=== PATIENT | male | born 1955 | race African-American/Black ===

== ENCOUNTER 2019-01-22 19:52 | Inpatient (IN) | payer OTHER ==
[~2019-01-22] VITALS: Ht 172.7 cm; Wt 108.0 kg
[2019-01-22 19:55] VITALS: BP 167/65
[2019-01-22 21:09] LABS: ABSOLUTE NEUTROPHILS 9.5 thou/uL (1.4-8.2); BASOPHILS 0.6 % (0.0-2.0); EOSINOPHILS 2.3 % (0.0-3.0); HEMATOCRIT 23.8 % (42.0-52.0); HEMOGLOBIN 7.7 gm/dL (14.0-18.0); LYMPHOCYTES 14.7 % (24.0-44.0); MCH 27.1 pg (26.0-34.0); MCHC 32.4 g/dL (28.0-37.0); MCV 83.7 fL (80.0-100.0); PLATELET COUNT 337 thou/uL (150-400); POLYS 75.4 % (36.0-66.0); RBC 2.85 mil/uL (4.50-6.00); RDW 17.2 % (10.5-14.5); WBC 12.6 thou/uL (4.0-11.0)
[2019-01-22 21:15] LABS: ANION GAP 12 mmol/L (7-16); BUN 70 mg/dL (7-18); CALCIUM 9.6 mg/dL (8.5-10.1); CHLORIDE 110 mmol/L (98-107); CO2 23 mmol/L (21-32); GLUCOSE 153 mg/dL (74-106); POTASSIUM 5.3 mmol/L (3.5-5.1); SODIUM 145 mmol/L (136-145)
[2019-01-22 21:24] LABS: TROPONIN-I <0.06 ng/mL (<0.06)
[2019-01-22] MEDS ORDERED: COREG25 MG PO (21:37)
[2019-01-22] MEDS ORDERED: CARDURA4 MG PO (21:38)
[2019-01-22] MEDS ORDERED: LIPITOR 20 MG T20 M1 PO (21:38)
[2019-01-22] MEDS ORDERED: TRADJENTA5 MG (21:38)
[2019-01-22] MEDS ORDERED: ASPIR 8181 MG PO (21:39)
[2019-01-22] MEDS ORDERED: FISH OIL 1,001000 M2 PO (21:39)
[2019-01-22] MEDS ORDERED: IRON325 PO (21:39)
[2019-01-22] MEDS ORDERED: OMEPRAZOLE40 MG PO (21:40)
[2019-01-22] MEDS ORDERED: DEMADEX20 MG PO (21:40)
[2019-01-22] MEDS ORDERED: ZETIA10 MG PO (21:41)
[2019-01-22] MEDS ORDERED: PENTOXIFYLLINE400 MG PO (21:42)
[2019-01-22 23:02] LABS: URINE BILIRUBIN NEGATIVE (Negative); URINE BLOOD TRACE (Negative); URINE CLARITY CLEAR; URINE COLOR YELLOW; URINE GLUCOSE-RANDOM* TRACE (Negative); URINE KETONES NEGATIVE (Negative); URINE LEUKOCYTES NEGATIVE (Negative); URINE NITRITE NEGATIVE (Negative); URINE PROTEIN (DIPSTICK) 2+ (Negative); URINE UROBILINOGEN 0.2 E.U./dl (0.2-1.0)
[2019-01-22 23:10] LABS: BACTERIA 1-9 Few /HPF (None Seen); CASTS None Seen /LPF (None Seen); CRYSTALS None Seen /LPF (None Seen); MUCUS 0-3 Light strn/LPF (None Seen); SQUAMOUS 0-3 Few /LPF (0-3); URINE RBC 0-2 Rare /HPF (0-2); URINE WBC 0-5 Rare /HPF (0-5)
[2019-01-22 23:14] VITALS: BP 154/69
[2019-01-22 23:20] VITALS: BP 136/65
[2019-01-23 00:01] VITALS: BP 143/69
--- NOTE | 2019-01-23 02:06 | NUR ---
PT ORIENTATED TO ROOM AND CALL LIGHT PT USED CALL LIGHT EFFECTIVELY CONSENTS SIGNED PT USED CALL LIGHT EFFECTIVELY NO ISSUES OVERNIGHT.
[2019-01-23 03:50] VITALS: BP 152/62
[2019-01-23 04:31] LABS: HEMATOCRIT 21.5 % (42.0-52.0); HEMOGLOBIN 6.9 gm/dL (14.0-18.0); MCH 27.1 pg (26.0-34.0); MCHC 32.3 g/dL (28.0-37.0); RBC 2.56 mil/uL (4.50-6.00); WBC 10.6 thou/uL (4.0-11.0)
[2019-01-23 04:33] LABS: MCV 83.9 fL (80.0-100.0); RDW 16.9 % (10.5-14.5)
[2019-01-23 04:43] LABS: CALCIUM 8.9 mg/dL (8.5-10.1); CREATININE 6.2 mg/dL (0.7-1.3); MAGNESIUM 1.8 mg/dL (1.8-2.4); PHOSPHORUS 5.3 mg/dL (2.5-4.9); POTASSIUM 4.9 mmol/L (3.5-5.1)
[2019-01-23 07:50] VITALS: BP 133/62
[2019-01-23 10:02] LABS: HEMATOCRIT 22.1 % (42.0-52.0)
--- NOTE | 2019-01-23 13:44 | EKG ---
[place] [address] [employer] [facility] [place] [address] ELECTROCARDIOGRAM REPORT Name: RAVIN ALCANTARA Room #: 455-P ADM IN M.R.#: [id number] ������������������ Admission: 01/22/19 ������������������ Attend Phys: Lux Hairston MD Discharge: ������������������ Date of : 57 Report #: [id number] ����������������������������������������������������������������� [id number] THIS REPORT FOR: //name// [facility] ED Test Date: 2019-01-22 Test Time: 20:49:12 Pat Name: RAVIN ALCANTARA Department: Room: [facility] Gender: M Secy: CHAD : 1955 Requested By: Carmen Youngblood Order Number: [id number] MD: Rios Marrero Measurements Intervals [place] Rate: 74 P: 37 MN: 222 QRS: 40 QRSD: 96 T: 157 QT: 388 QTc: 431 Interpretive Statements Sinus rhythm Paired ventricular premature complexes Prolonged MN interval Abnormal T, consider ischemia, lateral leads Compared to ECG 11/03/2006 20:37:55 Ventricular premature complex(es) now present T-wave abnormality is more pronounced Electronically Signed On 01-23-2019 13:44:18 CDT by Rios Marrero [email or web address] ��������������������������������������������� <ELECTRONICALLY SIGNED> ���������������������������������������� By: Rios Marrero MD, [facility] ��������������������������������������������� 01/23/19 1344 48 48 Rios Marrero MD, [facility] /EPI
[2019-01-23 13:55] VITALS: BP 127/67
--- NOTE | 2019-01-23 15:24 | NUR ---
TOWARDS POC PT A/O X4, VSS, AFEBRILE, DENIES PAIN. DIALYSIS FISTULA POSITIVE WITH T,B. NO CONCERNS VOICED. WILL CONTINUE TO MONITOR.
[2019-01-23 19:55] VITALS: BP 150/77
[2019-01-24 04:56] VITALS: BP 151/62
--- NOTE | 2019-01-24 05:50 | NUR ---
Assumed care at 1845. Pt resting in bed. Denies pain. He is still on 2L NC. Stool sample results still pending for occult blood. Call light within reach. No identified needs at the moment. Will continue to monitor.
[2019-01-24 05:57] LABS: HEMATOCRIT 22.7 % (42.0-52.0); HEMOGLOBIN 7.5 gm/dL (14.0-18.0); MCH 27.9 pg (26.0-34.0); MCHC 33.2 g/dL (28.0-37.0); RBC 2.7 mil/uL (4.50-6.00); RDW 17.1 % (10.5-14.5); WBC 10.9 thou/uL (4.0-11.0)
[2019-01-24 06:14] LABS: ALBUMIN 2.8 g/dL (3.4-5.0); CALCIUM 8.9 mg/dL (8.5-10.1); CREATININE 6.1 mg/dL (0.7-1.3); PHOSPHORUS 5.8 mg/dL (2.5-4.9)
[2019-01-24 06:23] LABS: % SATURATION 13 % (20-39); IRON 26 ug/dL (65-175); TIBC 199 ug/dL (250-450)
[2019-01-24 07:45] VITALS: BP 131/55
--- NOTE | 2019-01-24 11:25 | 2DMMODE ---
[facility] [employer] [address] 2 D/M-MODE ECHOCARDIOGRAM Name: RAVIN ALCANTARA Room #: 455-P [facility] IN [facility].#: [id number] ������������� Admission: 01/22/19 ������������� Attend Phys: Niko Martinez, Discharge: ��� ������������� ��� Date of : 57 Date of Service: 01/24/19 1124 �� Report #: [id number] �������� ��������������������������������������������[id number] THIS REPORT FOR: //name// APPROVED REPORT Study performed: 01/24/2019 10:18:54 EXAM: Comprehensive 2D, Doppler, and color-flow Echocardiogram Patient Location: Bedside Room #: [facility] Status: routine BSA: 2.20 HR: 67 bpm BP: 131/55 mmHg Rhythm: NSR Other Information Study Quality: Good Indications COPD Diabetes Hypertension/HDD PETTY Echo Enhancing Agent Indication: Endocardial border delineation Agent(s) / Amount(s) Used: Optison 3 cc 2D Dimensions RVDd: 46.76 mm IVSd: 14.89 (7-11mm) LVOT Diam: 20.78 (18-24mm) LVDd: 50.94 mm PWd: 15.54 (7-11mm) Ascending Ao: 27.01 (22-36mm) LVDs: 36.08 (25-40mm) Aortic Root: 33.50 mm IVC: 18.00 mm Volumes Left Atrial Volume (Systole) Single Plane 4CH: 73.05 mL Single Plane 2CH: 76.84 mL LA ESV Index: 38.00 mL/m2 Aortic Valve AoV Peak Pramod.: 1.40 m/s [facility] [address] [place] [address] 2 D/M-MODE ECHOCARDIOGRAM Name: RAVIN ALCANTARA Room #: 455-P [facility] IN [facility]#: [id number] ������������� Admission: 01/22/19 ������������� Attend Phys: Niko Martinez, Discharge: ��� ������������� ��� Date of : 57 Date of Service: 01/24/19 1124 �� Report #: [id number] �������� ��������������������������������������������[id number] AO Peak Gr.: 7.87 mmHg LVOT Max P.45 mmHg LVOT Max V: 1.05 m/s FAREED Vmax: 2.55 cm2 Mitral Valve E/A Ratio: 1.2 MV Decel. Time: 272.36 ms MV E Max Pramod.: 1.17 m/s MV A Pramod.: 1.00 m/s MV PHT: 78.99 ms IVRT: 92.27 ms Pulmonary Valve PV Peak Pramod.: 1.17 m/s PV Peak Gr.: 5.44 mmHg Pulmonary Vein P Vein S: 0.38 m/s P Vein A: 0.24 m/s P Vein D: 0.45 m/s P Vein A Dur.: 184.5 msec P Vein S/D Ratio: 0.84 Tricuspid Valve TR Peak Pramod.: 2.79 m/s RAP Estimate: 5.00 mmHg TR Peak Gr.: 31.12 mmHg PA Pressure: 36.00 mmHg Left Ventricle The left ventricle is normal size. Regional wall motion abnormalities are noted. Akinetic apex. Moderate concentric left ventricular hypertrophy. Left ventricular systolic function is mildly decreased. LVEF is 50%. Moderate diastolic dysfunction is present (pseudonormal filling). Right Ventricle Right ventricle is mild to moderately dilated. The right ventricular systolic function is normal. Atria Left atrium is mildly dilated. Right atrium is mildly dilated. Aortic Valve The aortic valve is normal in structure. No aortic regurgitation is present. There is no aortic valvular stenosis. Mitral Valve The mitral valve is normal in structure. Trace to mild mitral [facility] [address] [place] [address] 2 D/M-MODE ECHOCARDIOGRAM Name: RAVIN ALCANTARA Room #: 455-P [facility] IN [facility].#: [id number] ������������� Admission: 01/22/19 ������������� Attend Phys: Niko Martinez, Discharge: ��� ������������� ��� Date of : 57 Date of Service: 01/24/19 1124 �� Report #: [id number] �������� ��������������������������������������������[id number] regurgitation. No evidence of mitral valve stenosis. Tricuspid Valve The tricuspid valve is normal in structure. Trace tricuspid regurgitation. PAP is estimated at 36 mmHg. Pulmonic Valve The pulmonary valve is normal in structure. Trace pulmonic regurgitation. Great Vessels The aortic root is normal in size. IVC is normal in size and collapses >50% with inspiration. Pericardium There is no pericardial effusion. <Conclusion> The left ventricle is normal size. Moderate concentric left ventricular hypertrophy. Regional wall motion abnormalities are noted. Akinetic apex. LVEF is 50%. Moderate diastolic dysfunction is present (pseudonormal filling). Right ventricle is mild to moderately dilated. Left atrium is mildly dilated. Right atrium is mildly dilated. The aortic valve is normal in structure. Trace to mild mitral regurgitation. Trace tricuspid regurgitation. PAP is estimated at 36 mmHg. The aortic root is normal in size. There is no pericardial effusion. ��������������������������������������������� <ELECTRONICALLY SIGNED> ���������������������������������������� By: Barrington Sampson MD, FACC ��������������������������������������������� 01/24/19 1124 1124 1124 Barrington Sampson MD, FACC /INF
[2019-01-24 13:53] VITALS: BP 126/52
[2019-01-24 18:00] VITALS: BP 142/64
--- NOTE | 2019-01-24 19:46 | NUR ---
Pt stable through out the shift, is ableto use the call light effectively and make needs known. Fistula in the left upper arm positive for T and B. Pt is able to walk to the toilet with ease. No issues identified or verbalizations of sob. Still on 2L of O2 vuia NC (confort care). Transferred to room 222 (senior suites), tele dc by dr. Arreola. Pt has been trans ferred.
--- NOTE | 2019-01-25 04:07 | NUR ---
Assumed pt care at 1900. Pt A/OX4,pleasant and denies pain on assessment.Up ad reyna in room without problems,denies any SOA or cough.VSS.Voiding without problems. Did request for Metamucil even though had a BM,stating he normally takes some daily at home;order obtained for Metamucil PRN and administered at HS.Pt has a fistula on LUE, bruit and thrill positive,states hasn't been used yet for dialysis awaiting it to form completely. Pt sats 96% on RA,no 02 applied at noc.Resting quietly with eyes closed,no distress noted. Will continue to monitor pt.
[2019-01-25 07:30] VITALS: BP 131/52
[2019-01-25 07:53] LABS: ALBUMIN 3.1 g/dL (3.4-5.0); CALCIUM 9.3 mg/dL (8.5-10.1); PHOSPHORUS 5.6 mg/dL (2.5-4.9); POTASSIUM 4.8 mmol/L (3.5-5.1)
--- NOTE | 2019-01-25 10:27 | NUR ---
PATIENT CARE WAS ASSUMED AT 0715.PATIENT IS ALERT AND ORIENTED X4.PATIENT IS ABLE TO AMBULATE WITHOUT ASSISTANCE.PT HAS IV INTACT AND SALINE LOCKED.LEFT ARM HAS NEW FISULA, WITH BRUIT AND THRILL PRESENT.PT HAS NO COMPLAINS OF PAIN AT THIS TIME.CALL LIGHT, PHONE, AND PERSONAL BELONGINGS ARE WITHIN REACH.
[2019-01-25] MEDS ORDERED: TORSEMIDE20 MG PO (10:59)
[2019-01-25 11:40] VITALS: BP 131/52
--- NOTE | 2019-01-25 13:34 | NUR ---
PATIENT WAS DISCHARGED TO GO HOME.PATIENT IS STABLE UPON DISCHARGE.IV WAS TAKEN OUT,AND GAUZE AND TAPE PUT IN PLACE.DISCHARGE PAPERWORK WAS GIVEN TO PATIENT,PT HAS NO QUESTIONS AT THIS TIME.PT WAS GIVEN PRESCRIPTIONS, WITH EDUCATION ATTACHED.TRANSPORTATION WAS CALLED, AND PATIENT WAS WHEELED OUT TO CAR, WHERE WILL BE PICKING HIM UP.
--- NOTE | 2019-02-02 10:31 | HC ---
[facility] [address] CONSULTATION Name: QUINTONRAVIN Powers Room #: 223-P [facility] IN M.R.#: [id number] Admission: 01/22/19 ������������������ Attend Phys: Niko Martinez MD Discharge: 01/25/19 ������������������ Date of : 57 Report #: [id number] THIS REPORT FOR: //name// CC: Niko Jacobson DATE OF SERVICE: 01/24/2019 REASON FOR CONSULTATION: Chronic kidney disease. HISTORY OF PRESENT ILLNESS: The patient is well known to our service, followed carefully in our office with chronic kidney disease. He had a fistula placed 2-1/2 weeks ago. Fistula was placed in his left upper arm. He has had chronic kidney disease, hypertension, diabetes and has had worsening volume overload with congestive heart failure. He presented to hospital, treated with IV Lasix and he has improved quite a bit. PAST MEDICAL HISTORY: Hypertension, diabetes, chronic congestive heart failure. He has had a previous history of COPD and former cigarette smoker and he has had recently a polyp removed with questionable malignancy and he is waiting on reoperation for that. HOME MEDICATIONS: Include carvedilol 25 mg b.i.d., doxazosin 8 mg at bedtime, Tradjenta 5 mg daily, Lipitor 20 mg daily, fish oil 1000 mg daily, aspirin 81 mg daily, iron, omeprazole 40 mg daily, torsemide 20 mg daily, Zetia 10 mg daily and pentoxifylline 400 mg t.i.d. FAMILY HISTORY: Positive for cancer. SOCIAL HISTORY: Former smoker. He quit 4-5 months ago. No substantial use of alcohol. REVIEW OF SYSTEMS: GENERAL: Feeling reasonably well except for the shortness of air as mentioned. EYES: His vision is reasonably good. ENT: Hearing okay, swallows okay. No mouth sores. ENDOCRINE: Positive for the diabetes. RESPIRATORY: Somewhat easily short winded, particularly with exertion. CARDIAC: No chest pain or angina. He does get occasional swelling in his legs. GASTROINTESTINAL: No nausea, vomiting, diarrhea or bloody stools. GENITOURINARY: No dysuria, hematuria or renal stone disease. MUSCULOSKELETAL: No arthritis. NEUROLOGIC: No seizure, syncope, stroke or weakness. PHYSICAL EXAMINATION: GENERAL: This is a reasonably well-appearing gentleman, in no acute distress. [address] [address] CONSULTATION Name: QUINTONRAVIN Priya Room #: 223-[facility] IN M.R.#: [id number] Admission: 01/22/19 ������������������ Attend Phys: Niko Martinez MD Discharge: 01/25/19 ������������������ Date of : 57 Report #: [id number] SKIN: Unremarkable. SKELETAL: No joint deformity, somewhat obese. HEENT: Extraocular movements are full. Vision intact. No scleral icterus. Hearing intact. Mucous membranes are moist. Tongue, buccal mucosa benign. NECK: Supple, no carotid bruits. CHEST: Slightly diminished breath sounds at the bases. HEART: Regular. ABDOMEN: Soft and nontender. EXTREMITIES: Show trace peripheral edema. NEUROLOGIC: Grossly intact. LABORATORY DATA: Hemoglobin only 7.5, platelets 333. Sodium 143, potassium 5, chloride 109, bicarbonate 24, creatinine 6.1, BUN 72, albumin 2.8. ASSESSMENT AND PLAN: 1. Chronic kidney disease stage 5. We will try and hold off on dialysis. 2. Congestive heart failure, volume overload, responding to IV diuretics. We will increase his torsemide and stop the IV Lasix. 3. 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 He is scheduled for colonoscopy and excision. 4. Hypertension. 5. Diabetes mellitus. 6. Chronic obstructive pulmonary disease, former smoker. ��������������������������������������������� <ELECTRONICALLY SIGNED> ���������������������������������������� By: Barrington Estrada MD ��������������������������������������������� 02/02/19 1031 1003 0100 Barrington Estrada MD /nt
== END 2019-01-25 13:36 | disposition home or self-care (01) | DRG 291 ==
LOC: ER 19:52 → 4W 22:26 → EROBS 22:26 → 4W 23:22 → SICU 01-24 18:44 → ENTRNSPT 01-25 13:04 → EDTRNSPTSTS 01-25 13:09 → SICU 01-25 13:36
PROVIDERS: Internal Medicine Nephrology; Nurse Practitioner Acute Care; Student in an Organized Health Care Education/Training Program; ADMIT Hospitalist
DX: I13.2 Hypertensive heart and chronic kidney disease with heart failure and with stage 5 chronic kidney disease, or end stage renal disease (principal); N18.6 End stage renal disease; I50.33 Acute on chronic diastolic (congestive) heart failure; E11.22 Type 2 diabetes mellitus with diabetic chronic kidney disease; I25.10 Atherosclerotic heart disease of native coronary artery without angina pectoris; E78.00 Pure hypercholesterolemia, unspecified; J44.9 Chronic obstructive pulmonary disease, unspecified; Z87.891 Personal history of nicotine dependence; Z79.82 Long term (current) use of aspirin; Z79.899 Other long term (current) drug therapy; Z80.1 Family history of malignant neoplasm of trachea, bronchus and lung
CPT/HCPCS: 10045; 15002

== ENCOUNTER 2019-11-28 12:08 | Emergency (ER) | payer OTHER ==
[2019-11-28 12:08] VITALS: BP 177/65
[~2019-11-28 12:08] MED LIST: ASPIR 8181 MG PO; CARDURA4 MG PO; COREG25 MG PO; DEMADEX20 MG PO; FISH OIL 1,001000 M2 PO; IRON325 PO; LIPITOR 20 MG T20 M1 PO; OMEPRAZOLE40 MG PO; PENTOXIFYLLINE400 MG PO; TORSEMIDE20 MG PO; TRADJENTA5 MG; ZETIA10 MG PO
== END 2019-11-28 15:06 | disposition home or self-care (01) ==
LOC: ER 12:08
DX: S91.112A Laceration without foreign body of left great toe without damage to nail, initial encounter (principal); I12.0 Hypertensive chronic kidney disease with stage 5 chronic kidney disease or end stage renal disease; E11.22 Type 2 diabetes mellitus with diabetic chronic kidney disease; E78.00 Pure hypercholesterolemia, unspecified; J44.9 Chronic obstructive pulmonary disease, unspecified; N18.5 Chronic kidney disease, stage 5; Z79.4 Long term (current) use of insulin; W26.0XXA Contact with knife, initial encounter; Y93.89 Activity, other specified; Y92.89 Other specified places as the place of occurrence of the external cause; Y99.8 Other external cause status

== ENCOUNTER 2020-11-27 13:44 | Observation (INO) | payer OTHER ==
[~2020-11-27] VITALS: Ht 172.7 cm; Wt 107.1 kg
[2020-11-27 13:44] VITALS: BP 174/117
[2020-11-27 13:58] LABS: BE(vivo) -8.1 mmol/L (-2 to +3); HCO3 18.1 mmol/L (22.0-26.0); PCO2 39 mmHg (35.0-45.0); PO2 114.1 mmHg (80.0-100.0); pH 7.279 (7.360-7.450); sO2 97.7 % (92.0-98.0)
[2020-11-27 14:32] LABS: ABSOLUTE NEUTROPHILS 13.5 thou/uL (1.4-8.2); BASOPHILS 0.6 % (0.0-2.0); HEMATOCRIT 36.5 % (42.0-52.0); LYMPHOCYTES 8.8 % (24.0-44.0); MCH 29.5 pg (26.0-34.0); MCV 89.4 fL (80.0-100.0); MONOCYTES 5.3 % (1.0-8.0); PLATELET COUNT 258 thou/uL (150-400); POLYS 84.3 % (36.0-66.0); RBC 4.08 mil/uL (4.50-6.00)
[2020-11-27 14:55] LABS: ANION GAP 11 mmol/L (7-16); BUN 63 mg/dL (7-18); CALCIUM 8.9 mg/dL (8.5-10.1); CHLORIDE 102 mmol/L (98-107); CO2 25 mmol/L (21-32); CREATININE 8.7 mg/dL (0.7-1.3); GLUCOSE 225 mg/dL (74-106); SODIUM 138 mmol/L (136-145)
[2020-11-27 15:04] LABS: TROPONIN-I <0.06 ng/mL (<0.06)
--- NOTE | 2020-11-27 15:37 | NUR ---
DELIA KAY CALLED WANTING TO KNOW IF PT. HAS ROOM OR NEEDS TO BE DIALYZED IN ED, PER ANA RN- DIALYSIS IN ED, ADVISED DELIA
[2020-11-27 16:42] LABS: BE(vivo) -2.4 mmol/L (-2 to +3); HCO3 23.5 mmol/L (22.0-26.0); PCO2 44.9 mmHg (35.0-45.0); PO2 113.3 mmHg (80.0-100.0); pH 7.336 (7.360-7.450); sO2 97.9 % (92.0-98.0)
--- NOTE | 2020-11-27 16:51 | NUR ---
65 year old male PMHx of ESRD on dialysis presenting to the ED complaints of SOA. Pt dialyzes MWF. He last dialyzed 4 days prior to 11-27-20. He was unable to dialyze on 11-26-20 secondary to the weather. He developed SOA 3 days ago which has continue to worsen. He was unable to take his oral medications this morning secondary to SOA. Pt presented via EMS to the ED in respiratory distress. Patient placed on Bipap in the ED as hypoxic upon arrival. The patient has been admitted and nephrology has been consulted and started on IV Abt's. COVID 19 PCR pending in ED on 11-27-20 at 1517 Per ED assessment patient is A&O x4. Next of kin listed as a friend Alethea Pavon at [phone] who's address is the same as the patient. Notes patient reports dialyzing in [place] and was brought in to the ED [facility]. CM to follow for discharge needs.
[2020-11-27] MEDS ORDERED: RENVELA0.8 GM PO (17:27)
[2020-11-27 18:12] LABS: ALBUMIN 3.4 g/dL (3.4-5.0); TOTAL PROTEIN 8.7 g/dL (6.4-8.2)
[2020-11-28 05:58] LABS: HEMATOCRIT 34.9 % (42.0-52.0); HEMOGLOBIN 11.7 gm/dL (14.0-18.0); MCH 29.9 pg (26.0-34.0); MCHC 33.4 g/dL (28.0-37.0); MCV 89.5 fL (80.0-100.0); RBC 3.9 mil/uL (4.50-6.00); RDW 15.4 % (10.5-14.5); WBC 10.7 thou/uL (4.0-11.0)
[2020-11-28 06:13] LABS: CREATININE 6.1 mg/dL (0.7-1.3); POTASSIUM 3.7 mmol/L (3.5-5.1)
[2020-11-28 06:25] VITALS: BP 119/68
--- NOTE | 2020-11-28 06:47 | NUR ---
ISOLATION CLEARED PER Magda WOOD RN.
--- NOTE | 2020-11-28 07:21 | EKG ---
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 : 1955 Requested By: Óscar Gamboa Order Number: [id number] MD: Ky Gotti Measurements Intervals [place] Rate: 109 P: 47 GA: 186 QRS: 46 QRSD: 101 T: 186 QT: 343 QTc: 463 Interpretive Statements Sinus tachycardia Abnormal T, consider ischemia, lateral leads Compared to ECG 01/22/2019 20:49:12 Sinus rhythm no longer present Ventricular premature complex(es) no longer present First degree AV block no longer present T-wave abnormality still present Possible ischemia still present Electronically Signed On 11-28-2020 7:21:09 VISION MIXER by Ky Gotti [email or web address] <ELECTRONICALLY SIGNED> By: Ky Gotti MD, FAC 11/28/20 0721 1432 1432 Ky Gotti MD, [facility] /EPI
[2020-11-28 07:44] VITALS: BP 149/64
[2020-11-28 07:59] VITALS: BP 149/65
[2020-11-28 08:20] VITALS: BP 148/68
--- NOTE | 2020-11-28 13:32 | NUR ---
Pt dcing home today after dialysis. Pt's step son Magdy Pavon can picked edge sewing machine operator later today. Pt notes he lives with his fiance and he normally drives himself to dialysis MWF at [facility]. He as not able to get there Thursday due to the inclement weather. He is indep with gait and adl's. No dc planning needs indicated. DC assistant media planner to fax his dc summary and instructions to his clinic at [place] later today.
[2020-11-28 17:30] VITALS: BP 151/65
--- NOTE | 2020-11-28 18:43 | NUR ---
PT. ARRIVED AT FLOOR IMMEDIATELY AFTER 0800; PT. AOX4; NO C/O PAIN; ST. ABLE TO AMBULATE WITHOUT ASSISTANCE; NO FALLS DURING THE LAST 3 MONTHS; EDUCATED ABOUT FALL PRECAUTIONS; ST. UNDERSTANDING; EDUCATED ABOUT CALL LIGHT & BED CONTROLS; ST. UNDERSTANDING; EDUCATED ABOUT AM MEDICATIONS; PER DIALYSIS NURSE HOLD BP MEDICATION DUE TO SCHEDULED DIALYSIS; AM CARVEDILOL AND TORESIMIDE GOLD; PER DR. PALENCIA PT. WILL BE D/C TODAY; 11/28/2020; AT 1730 DIALYSIS NURSE NOT AT THE BED SIDE; CALL DIALYSIS NURSE PRODUCTION PAINTER; RECEIVED CALL BACK; PER REPORT NURSE ON HER WAY; PM CARVEDILOL HOLD; DR. ANGELES NOTIFIED; D/C ORDERS FOR 11/29/2020; STMarianne UNDERSTANDING; ASSESSMENT CHARGED; FOLLOWING POC; WILL PASS ON REPORT;
[2020-11-28 20:11] VITALS: BP 142/84
[2020-11-29 04:34] VITALS: BP 108/69
[2020-11-29 05:44] LABS: HEMATOCRIT 38.9 % (42.0-52.0); HEMOGLOBIN 12.7 gm/dL (14.0-18.0); MCH 29.3 pg (26.0-34.0); MCHC 32.7 g/dL (28.0-37.0); MCV 89.6 fL (80.0-100.0); RBC 4.34 mil/uL (4.50-6.00); RDW 15.5 % (10.5-14.5); WBC 12.6 thou/uL (4.0-11.0)
[2020-11-29 06:15] LABS: CALCIUM 9.6 mg/dL (8.5-10.1); CREATININE 5.2 mg/dL (0.7-1.3); MAGNESIUM 2.1 mg/dL (1.8-2.4); POTASSIUM 3.9 mmol/L (3.5-5.1)
--- NOTE | 2020-11-29 06:26 | NUR ---
ASSESSMENTS CHARTED, MEDS CHARTED GIVEN. PATIENT STARTING DIALYSIS AT START OF SHIFT. 2 LITERS WERE TAKEN OFF. SINUS RHYTHM WITH BBB. LUNGS DIMINISHED. PATIENT BREATHING MUCH EASIER THAN WHEN HE ARRIVE AT HOSPITAL. UP AT LUIS ALBERTO IN ROOM. C/O CONSTIPATION. REQUESTED MOM. RECEIVED ONE DOSE. PLAN IS TO RETURN HOME TODAY. FALL PRECAUTIONS IN PLACE DURING SHIFT.
[2020-11-29 07:20] VITALS: BP 124/65
[2020-11-29 11:30] VITALS: BP 115/65
[2020-11-29 12:41] LABS: URINE BILIRUBIN NEGATIVE (Negative); URINE BLOOD TRACE (Negative); URINE CLARITY SL CLOUDY; URINE COLOR YELLOW; URINE GLUCOSE-RANDOM* NEGATIVE (Negative); URINE KETONES NEGATIVE (Negative); URINE LEUKOCYTES-REFLEX NEGATIVE (Negative); URINE NITRITE-REFLEX NEGATIVE (Negative); URINE PROTEIN (DIPSTICK) 3+ (Negative); URINE SPECIFIC GRAVITY 1.025 (1.005-1.035); URINE UROBILINOGEN 0.2 E.U./dl (0.2-1.0)
[2020-11-29 12:53] LABS: COARSE GRANULAR CASTS 0-3 Few /LPF (None Seen); HYALINE CASTS 0-3 Few /LPF (None Seen); SQUAMOUS 4-10 Moderate /LPF (0-3)
[2020-11-29 12:54] LABS: AMORPHOUS URATES Moderate /LPF (None Seen); BACTERIA-REFLEX 1-9 Few /HPF (None Seen); URINE RBC None Seen /HPF (0-2); URINE WBC-REFLEX 0-5 Rare /HPF (0-5)
--- NOTE | 2020-11-29 13:48 | NUR ---
Spoke with patient and discussed need for oxygen. Verified address. Rec script for oxygen faxed script and pertinent infomation to [facility]. Confirmed receipt.
[2020-11-29 13:56] VITALS: BP 115/65
[2020-11-29 14:01] VITALS: BP 115/65
--- NOTE | 2020-11-29 15:08 | NUR ---
RECEIVED PT'S CARE AROUND 0710; PT. ON BED; ALERT; DURING AM ASSESSMENT AOX4; NO C/O PAIN; AM MEDICATIONS GIVEN; NOTICED ELEVATED WBC; PHYSICIAN NOTIFIED; PER PT. PT'S 02 SAT DESAT DURING AMBULATION; PHYSICIAN NOTIFIED; ORDERS ON PLACED; PT. EDUCATED ABOUT URINE SAMPLE; ST. UNDERSTANDING; SAMPLE COLLECTED; PER RT PT. NEEDS O2 WHILE AMBULATING; PHYSICIAN AND EXCELLENCE MANAGER NOTIFIED; PT. NOTIFIED; PER EXCELLENCE MANAGER REPORT 02 WILL BE DELIVERY AROUND 1500; PT. NOTIFIED; ST. UNDERSTANDING; SR ON THE MONITOR; ASSESSMENT CHARGED; FOLLOWING POC; WILL WORK ON D/C ORDERS;
[2020-11-29 15:13] VITALS: BP 115/65
--- NOTE | 2020-11-29 15:58 | NUR ---
[facility].
== END 2020-11-29 16:23 | disposition home or self-care (01) ==
LOC: ER 13:44 → EROBS 16:21 → 2N 16:21
PROVIDERS: Emergency Medicine; ADMIT Internal Medicine; ATTEND Internal Medicine
DX: J96.00 Acute respiratory failure, unspecified whether with hypoxia or hypercapnia (principal); E87.79 Other fluid overload; Z20.828 Contact with and (suspected) exposure to other viral communicable diseases; E78.5 Hyperlipidemia, unspecified; I25.10 Atherosclerotic heart disease of native coronary artery without angina pectoris; E11.22 Type 2 diabetes mellitus with diabetic chronic kidney disease; I12.9 Hypertensive chronic kidney disease with stage 1 through stage 4 chronic kidney disease, or unspecified chronic kidney disease; N18.6 End stage renal disease; J44.9 Chronic obstructive pulmonary disease, unspecified; Z90.89 Acquired absence of other organs; Z87.891 Personal history of nicotine dependence; Z79.899 Other long term (current) drug therapy; Z79.82 Long term (current) use of aspirin
CPT/HCPCS: 32100

== ENCOUNTER 2021-01-15 20:31 | Inpatient (IN) | payer OTHER ==
[~2021-01-15] VITALS: Ht 172.7 cm; Wt 116.1 kg
--- NOTE | ~2021-01-15 | HC ---
[facility] [place] [address] CONSULTATION Name: RAVIN ALCANTARA Room #: 443-P ADM IN M.R.#: [id number] Admission: 01/15/21 Attend Phys: Lux Hairston MD Discharge: Date of : 57 Report #: [id number] THIS REPORT FOR: cc: Magdy Jacobson MD, Steven E. MD Al-Ezequiel,Niko Vargas MD ~ REASON FOR CONSULTATION: End-stage renal disease. REASON FOR PRESENTATION: Rectal bleeding. HISTORY OF PRESENT ILLNESS: Very well-known patient to me. He has end-stage renal disease due to longstanding diabetes mellitus and hypertension. He is maintained on hemodialysis every Thursday, Thursday and Thursday. He presented yesterday with rectal bleeding that began one day before his presentation. He denies any prior events. He denies any dizziness or lightheadedness. He had a colonoscopy as he recalls few months ago and was told they have some diverticulosis. He did have an event of diverticulitis in the past. He denies nonsteroidal anti-inflammatory medication usage. The patient was admitted for further evaluation and I was asked to assist with the management of his end-stage renal disease. His hemoglobin has dropped from 11.2-9.5 as of this morning. PAST MEDICAL HISTORY: 1. Diabetes mellitus. 2. Hypertension. 3. End-stage renal disease, maintained on hemodialysis every Thursday, Thursday and Alvaro. 4. Diverticulitis. 5. Coronary artery disease. 6. Chronic obstructive pulmonary disease. 7. Chronic polyps. PAST SURGICAL HISTORY: 1. Thoracotomy. 2. AV fistula. ALLERGIES: None. FAMILY HISTORY: Significant for diabetes mellitus and hypertension. MEDICATIONS: 1. Ezetimibe. 2. Carvedilol. 3. Linagliptin. 4. Omeprazole. 5. Sevelamer. [facility] [address] [place] [address] CONSULTATION Name: QUINTONRAVIN Priya Room #: 443-P [facility] IN [facility]#: [id number] Admission: 01/15/21 Attend Phys: Lux Hairston MD Discharge: Date of : 57 Report #: [id number] SOCIAL HISTORY: Denies drug or alcohol abuse. REVIEW OF SYSTEMS: GENERAL: No fever or chills. CARDIOVASCULAR: No chest pain or palpitation. PULMONARY: No cough or hemoptysis. GASTROINTESTINAL: As per the history of present illness. GENITOURINARY: No frequency, urgency. MUSCULOSKELETAL: Occasional back pain. SKIN: No rash or ulcerations. PHYSICAL EXAMINATION: VITAL SIGNS: Temperature is 36.9, blood pressure is 119/54. HEAD AND NECK: No jugular venous distention, no bruit, no thyromegaly. CHEST: No crackles. CARDIOVASCULAR: No rub. ABDOMEN: Soft, nontender. LOWER EXTREMITIES: No edema. LABORATORY DATA: Reviewed. Hemoglobin down to 9.5 from 11.2. Sodium is 139, BUN is 56, creatinine is 8.5. IMPRESSION AND PLAN 1. Rectal bleeding. 2. End-stage renal disease. 3. Hypertension. 4. Diabetes mellitus. 5. Coronary artery disease. 6. Arrangement for the patient was made such that he received his dialysis yesterday. 7. GI evaluation. 8. We will continue with the usual dialysis regimen every Thursday, Thursday and Thursday while the patient is in-house. 9. Resume his outpatient medications. 10. Ongoing gastrointestinal evaluation. By: 0825 0857 Niko Martinez MD /nt
[~2021-01-15 20:31] MED LIST changes: +RENVELA0.8 GM PO
[2021-01-15 20:44] VITALS: BP 169/79
[2021-01-15 21:56] LABS: ABSOLUTE NEUTROPHILS 8.5 thou/uL (1.4-8.2); BASOPHILS 0.5 % (0.0-2.0); HEMATOCRIT 34.2 % (42.0-52.0); HEMOGLOBIN 11.2 gm/dL (14.0-18.0); LYMPHOCYTES 15.9 % (24.0-44.0); MCH 29.6 pg (26.0-34.0); MCHC 32.8 g/dL (28.0-37.0); MCV 90.2 fL (80.0-100.0); MONOCYTES 7.1 % (1.0-8.0); PLATELET COUNT 246 thou/uL (150-400); POLYS 74.5 % (36.0-66.0); RDW 15.9 % (10.5-14.5); WBC 11.4 thou/uL (4.0-11.0)
[2021-01-15 22:13] LABS: APTT 28.8 Seconds (24.5-32.8); INR 1.08; PROTIME 11.7 Seconds (9.3-11.4)
[2021-01-15 22:19] LABS: CALCIUM 8.6 mg/dL (8.5-10.1); CREATININE 8.5 mg/dL (0.7-1.3); POTASSIUM 4.5 mmol/L (3.5-5.1)
[2021-01-15 22:26] LABS: ALBUMIN 3.4 g/dL (3.4-5.0); DIRECT BILIRUBIN 0.2 mg/dL (<0.1-0.2); TOTAL BILIRUBIN 0.5 mg/dL (0.2-1.0); TOTAL PROTEIN 8.1 g/dL (6.4-8.2)
[2021-01-16 05:27] LABS: HEMATOCRIT 28.2 % (42.0-52.0); HEMOGLOBIN 9.5 gm/dL (14.0-18.0); MCH 30.1 pg (26.0-34.0); MCHC 33.5 g/dL (28.0-37.0); MCV 89.7 fL (80.0-100.0); RBC 3.14 mil/uL (4.50-6.00); RDW 15.8 % (10.5-14.5); WBC 10.2 thou/uL (4.0-11.0)
[2021-01-16 07:05] VITALS: BP 137/73
[2021-01-16 07:30] VITALS: BP 145/76
[2021-01-16 08:36] VITALS: BP 170/74
--- NOTE | 2021-01-16 09:34 | NUR ---
ASSESSMENT: CM REVIEWED CHART AND SPOKE WITH PATIENT. PT IS ALERT AND ORIENTED X4. PT WAS ADMITTED AFTER NOTICING RECTAL BLEEDING AND POSSIBLE GI BLEED. PT REPORTS THAT HE LIVES AT HOME WITH HIS FIANCE IN AN APT. PT HAS HX OF ESRD AND GOES TO [facility] AT 0530AM. PT REPORTS HE DRIVES HIMSELF TO AND FROM. PT REPORTS HE IS FULLY INDEPENDENT WITH ADLS AND AMBULATION. PT DENIES THE NEED FOR DME. PT STATES THAT HE THINKS HE HAS HAD HH IN THE PAST BUT UNSURE COMPANY. PT HAS NOT BEEN TO A SNF. CM DISCUSSED ROLE. PT DOES NOT ANTICIPATE HAVING ANY NEEDS FROM CM. CM CONTACTED [facility] [phone] AND NOTIFIED THEM OF PATIENTS ADMISSION WELL FAXED UPDATED CLINICAL TO THEM AT [phone]. CM WILL FAX FLOWSHEETS ONCE AVAILABLE AND PRIOR TO DISCHARGE.
--- NOTE | 2021-01-16 12:59 | NUR ---
SIXTY [age] YEAR OLD MALE ADMITTED TO [facility] ROOM 443 DUE TO C/O HAVING "BLOODY STOOLS. PT ALERT AND ORIENTED TIMES FOUR. BP ELEVATED MEDICATION GIVEN OTHER VSS. PT DENIES PAIN/SOA AT THIS TIME. PT TOLERATES MEDS AND CLEAR LIQUID DIET. WILL CONTINUE TO MONITOR.
[2021-01-16 15:54] VITALS: BP 141/74
[2021-01-16 19:59] VITALS: BP 107/67
--- NOTE | 2021-01-17 04:16 | NUR ---
RECEIVED CARE OF THIS PATIENT AT 1900. PATIENT WAS IN DIALYSIS BEGINNING OF SHIFT. 1200ML OF FLUID REMOVED. AV SHUNT HAS GOOD BRUIT AND THRILL. DRESSING FROM DIALYSIS D/I. DENIES PAIN. PATIENT ALERT AND ORIENTED X4. UP IN ROOM. SLEPT MOST OF NIGHT.
[2021-01-17 04:37] VITALS: BP 113/63
[2021-01-17 07:09] LABS: HEP B SURFACE Ab(ANTI-HBS Non Reactive (()); HEPATITIS B SURFACE AG Negative (Negative)
[2021-01-17 08:07] VITALS: BP 119/54
[2021-01-17 09:29] LABS: HEMATOCRIT 28.3 % (42.0-52.0); HEMOGLOBIN 9.3 gm/dL (14.0-18.0); MCH 29.6 pg (26.0-34.0); MCHC 32.8 g/dL (28.0-37.0); MCV 90.4 fL (80.0-100.0); RBC 3.13 mil/uL (4.50-6.00); RDW 15.9 % (10.5-14.5)
--- NOTE | 2021-01-17 14:00 | NUR ---
ON-GOING ASSESSMENT: CM REVIEWED CHART. PTS WBC IS ELEVATED AND PT WILL REMAIN IN HOUSE OVERNIGHT. CM UPDATED [facility]IENTS [facility] AND ALSO FAXED THEM FLOWSHEETS. CM WILL CONTINUE TO FOLLOW TO ASSIST NEEDED.
[2021-01-17 17:17] VITALS: BP 144/67
--- NOTE | 2021-01-17 18:24 | NUR ---
A/O, calm and coooperative. patient WBC elevated, afebrile. denied pain, no n/v.
[2021-01-17 20:02] VITALS: BP 138/69
--- NOTE | 2021-01-18 04:24 | NUR ---
RECIEVED CARE OF THIS PATIENT AT 1900. PATIENT ALERT AND ORIENTED X4. PATIENT UP IN ROOM. DENIES PAIN. HEMODIALYSIS CATH HAS GOOD BRUIT AND THRILL. SLEPT MOST OF NIGHT.
[2021-01-18 05:34] VITALS: BP 118/59
[2021-01-18 06:26] LABS: HEMATOCRIT 24.3 % (42.0-52.0); MCH 29.5 pg (26.0-34.0); MCHC 32.7 g/dL (28.0-37.0); MCV 90.2 fL (80.0-100.0); RBC 2.7 mil/uL (4.50-6.00); RDW 15.8 % (10.5-14.5); WBC 12.2 thou/uL (4.0-11.0)
[2021-01-18 06:39] LABS: CALCIUM 8.1 mg/dL (8.5-10.1); CREATININE 7.6 mg/dL (0.7-1.3); MAGNESIUM 1.7 mg/dL (1.8-2.4); POTASSIUM 3.9 mmol/L (3.5-5.1)
[2021-01-18 08:58] LABS: HEMATOCRIT 24.4 % (42.0-52.0); HEMOGLOBIN 8.3 gm/dL (14.0-18.0); MCHC 33.8 g/dL (28.0-37.0); MCV 88.8 fL (80.0-100.0); RBC 2.75 mil/uL (4.50-6.00); RDW 15.5 % (10.5-14.5); WBC 11.8 thou/uL (4.0-11.0)
[2021-01-18 10:00] VITALS: BP 142/87
[2021-01-18] MEDS ORDERED: CIPRO250 M2 PO (12:53)
[2021-01-18] MEDS ORDERED: FLAGYL500 M1 PO (12:54)
[2021-01-18 13:21] VITALS: BP 142/87
--- NOTE | 2021-01-18 14:04 | NUR ---
ON-GOING ASSESSMENT: CM REVIEWED CHART. PT HAS ORDERS TO DISCHARGE HOME TODAY. PT GOT DIALYSIS IN HOUSE. CM NOTIFIED [facility] OF DISCHARGE TODAY AND FAXED PAPERWORK AND CONFIRMED THEY RECEIVED IT. PT REPORTS NO FURTHER NEEDS FROM CM.
--- NOTE | 2021-01-18 14:15 | NUR ---
ASSUMED CARE OF PATIENT UPON SHIFT CHNAGE; 0700. ASSESSMENT CHARTED. MEDS ADMINISTERED PER MAR. PATIENT RECEIVING DIALYIS IN AM. 2L OUTPUT; STABLE BP THROUGHOUT AND NO OUTSTANDING EVENTS. PATIENT WAS SEEN BY PROVIDERS THIS DAY AND CLEARED FOR DISCHARGE. HAD A BM THIS SHIFT WITH "OLD" BLOOD IN STOOL, SEEN BY GI TEAM. DISCHARGE INSTRUCTIONS AND EDUCATION GIVEN TO PATIENT, PRESCRIPTION INFO GIVEN. ALL BELONGINGS WITH PATIENT. IV ACCESS DISCONTINUED. PATIENT WHEELED OFF UNIT BY DUPLICATING MACHINE MECHANIC AT APPROX 1415.
== END 2021-01-18 17:27 | disposition home or self-care (01) | DRG 377 ==
LOC: ER 20:31 → 4S 23:13 → EROBS 23:13 → 4S 01-16 08:01
PROVIDERS: Hospitalist; Nurse Practitioner; ADMIT Internal Medicine; ATTEND Internal Medicine
PROC: 5A1D70Z Performance of Urinary Filtration, Intermittent, Less than 6 Hours Per Day (ICD-10-PCS; principal; 2021-01-18)
DX: K57.33 Diverticulitis of large intestine without perforation or abscess with bleeding (principal); N18.6 End stage renal disease; I12.0 Hypertensive chronic kidney disease with stage 5 chronic kidney disease or end stage renal disease; Z20.822 Contact with and (suspected) exposure to COVID-19; E78.00 Pure hypercholesterolemia, unspecified; J44.9 Chronic obstructive pulmonary disease, unspecified; I25.10 Atherosclerotic heart disease of native coronary artery without angina pectoris; E11.22 Type 2 diabetes mellitus with diabetic chronic kidney disease; Z86.010 Personal history of colon polyps; Z82.49 Family history of ischemic heart disease and other diseases of the circulatory system; Z83.3 Family history of diabetes mellitus; Z87.891 Personal history of nicotine dependence; Z79.82 Long term (current) use of aspirin; Z79.899 Other long term (current) drug therapy
CPT/HCPCS: 10195; 32100

== ENCOUNTER → 2021-02-07 | Outpatient (CLI) | payer OTHER ==
[~2021-02-07] MED LIST changes: +CIPRO250 M2 PO; +FLAGYL500 M1 PO
== END ==
LOC: CAT 09:43
PROVIDERS: ATTEND Internal Medicine Critical Care Medicine
DX: R94.2 Abnormal results of pulmonary function studies (principal); I51.7 Cardiomegaly; M25.78 Osteophyte, vertebrae; N28.1 Cyst of kidney, acquired; K44.9 Diaphragmatic hernia without obstruction or gangrene

== ENCOUNTER 2021-04-08 14:03 | Emergency (ER) | payer OTHER ==
[~2021-04-08] VITALS: Ht 172.7 cm; Wt 116.1 kg
[2021-04-08 15:08] LABS: URINE BILIRUBIN NEGATIVE (Negative); URINE BLOOD 1+ (Negative); URINE CLARITY CLEAR; URINE COLOR YELLOW; URINE GLUCOSE-RANDOM* NEGATIVE (Negative); URINE KETONES NEGATIVE (Negative); URINE NITRITE-REFLEX NEGATIVE (Negative); URINE PROTEIN (DIPSTICK) 3+ (Negative); URINE UROBILINOGEN 0.2 E.U./dl (0.2-1.0)
[2021-04-08 15:10] LABS: URINE LEUKOCYTES-REFLEX 1+ (Negative)
[2021-04-08 15:24] LABS: BACTERIA-REFLEX 1-9 Few /HPF (None Seen); CASTS None Seen /LPF (None Seen); CRYSTALS None Seen /LPF (None Seen); SQUAMOUS None Seen /LPF (0-3); URINE RBC None Seen /HPF (NONE SEEN); URINE WBC-REFLEX 6-15 Few /HPF (0-5)
[2021-04-08 15:59] LABS: ABSOLUTE NEUTROPHILS 8.5 thou/uL (1.4-8.2); BASOPHILS 0.6 % (0.0-2.0); EOSINOPHILS 1.9 % (0.0-3.0); HEMATOCRIT 38.1 % (42.0-52.0); HEMOGLOBIN 12.3 gm/dL (14.0-18.0); LYMPHOCYTES 13.2 % (24.0-44.0); MCH 29.9 pg (26.0-34.0); MCHC 32.4 g/dL (28.0-37.0); MCV 92.5 fL (80.0-100.0); PLATELET COUNT 253 thou/uL (150-400); POLYS 76.3 % (36.0-66.0); RBC 4.12 mil/uL (4.50-6.00); RDW 16.8 % (10.5-14.5); WBC 11.1 thou/uL (4.0-11.0)
[2021-04-08 16:04] LABS: CALCIUM 8.4 mg/dL (8.5-10.1); CREATININE 9.3 mg/dL (0.7-1.3); POTASSIUM 4.6 mmol/L (3.5-5.1)
[2021-04-08 16:12] LABS: ALBUMIN 3.1 g/dL (3.4-5.0); TOTAL BILIRUBIN 0.5 mg/dL (0.2-1.0); TOTAL PROTEIN 8.2 g/dL (6.4-8.2)
--- NOTE | 2021-04-08 17:07 | EKG ---
[place] [address] [facility] [place] [address] ELECTROCARDIOGRAM REPORT Name: RAVIN ALCANTARA Priya [facility] [id number] Admission: 04/08/21 Attend Phys: Discharge: Date of : 57 Report #: [id number] [facility] ED Test Date: 2021-04-08 Test Time: 15:23:26 Pat Name: RAVIN ALCANTARA Department: Room: Gender: M Meat Washer: angelique : 1955 Requested By: Wilver Corona Order Number: [id number] MD: Ky Gotti Measurements Intervals [place] Rate: 82 P: 0 NE: 269 QRS: 46 QRSD: 105 T: 159 QT: 398 QTc: 465 Interpretive Statements Sinus rhythm Prolonged NE interval Abnormal T, consider ischemia, lateral leads Baseline wander in lead(s) V1 Compared to ECG 11/27/2020 14:32:11 First degree AV block now present Sinus tachycardia no longer present T-wave abnormality still present Possible ischemia still present Electronically Signed On 04-08-2021 17:07:29 CDT by Ky Gotti [email or web address] <ELECTRONICALLY SIGNED> By: Ky Gotti MD, [facility] 04/08/21 1707 1523 1523 Ky Gotti MD, [facility] /EPI
[2021-04-08 17:24] LABS: APTT 27.6 Seconds (24.5-32.8); INR 1.11
[2021-04-08] MEDS ORDERED: CIPROFLOXACIN500 M1 PO (17:25)
[2021-04-08] MEDS ORDERED: FLAGYL500 M1 PO (17:25)
[2021-04-08 18:01] VITALS: BP 176/74
== END 2021-04-08 18:02 | disposition home or self-care (01) ==
LOC: ER 14:03
PROVIDERS: Emergency Medicine
DX: N39.0 Urinary tract infection, site not specified (principal); K62.5 Hemorrhage of anus and rectum; E11.22 Type 2 diabetes mellitus with diabetic chronic kidney disease; I12.0 Hypertensive chronic kidney disease with stage 5 chronic kidney disease or end stage renal disease; N18.6 End stage renal disease

== ENCOUNTER → 2021-06-25 | Outpatient (CLI) | payer OTHER ==
[~2021-06-25] MED LIST changes: +CIPROFLOXACIN500 M1 PO
== END ==
LOC: CAT 05-28 11:08
PROVIDERS: ATTEND Hospitalist
DX: N18.6 End stage renal disease (principal); J98.4 Other disorders of lung

== ENCOUNTER 2021-08-17 15:19 | Inpatient (IN) | payer OTHER ==
[~2021-08-17] VITALS: Ht 172.7 cm; Wt 108.9 kg
[2021-08-17 16:16] VITALS: BP 138/64
[2021-08-17 16:45] LABS: ABSOLUTE NEUTROPHILS 13.2 thou/uL (1.4-8.2); BASOPHILS 0.6 % (0.0-2.0); EOSINOPHILS 0.9 % (0.0-3.0); HEMATOCRIT 34.8 % (42.0-52.0); HEMOGLOBIN 11.6 gm/dL (14.0-18.0); LYMPHOCYTES 11.6 % (24.0-44.0); MCH 30.3 pg (26.0-34.0); MCHC 33.3 g/dL (28.0-37.0); MONOCYTES 6.4 % (1.0-8.0); PLATELET COUNT 246 thou/uL (150-400); POLYS 80.5 % (36.0-66.0); RBC 3.83 mil/uL (4.50-6.00); RDW 14.9 % (10.5-14.5); WBC 16.4 thou/uL (4.0-11.0)
[2021-08-17 16:54] LABS: CALCIUM 8.1 mg/dL (8.5-10.1); CREATININE 6.6 mg/dL (0.7-1.3); POTASSIUM 4.3 mmol/L (3.5-5.1)
[2021-08-17 17:00] LABS: ALBUMIN 3.1 g/dL (3.4-5.0); TOTAL BILIRUBIN 0.4 mg/dL (0.2-1.0)
[2021-08-17 17:24] LABS: APTT 30.2 Seconds (24.5-32.8); INR 1.11
[2021-08-18] VITALS (7 sets, daily range): BP systolic 111–186; BP diastolic 56–75
[2021-08-18 04:49] LABS: HEMATOCRIT 28.6 % (42.0-52.0); HEMOGLOBIN 9.6 gm/dL (14.0-18.0); MCH 30.6 pg (26.0-34.0); MCHC 33.4 g/dL (28.0-37.0); MCV 91.7 fL (80.0-100.0); RBC 3.12 mil/uL (4.50-6.00); WBC 11.2 thou/uL (4.0-11.0)
[2021-08-18 05:23] LABS: CREATININE 7.7 mg/dL (0.7-1.3)
--- NOTE | 2021-08-18 08:14 | NUR ---
new admission for abd pain and diverticulitis. left upper fistular has thrill and bruit. patient ambulates to the bathroom with steady gaits. patient is calm and cooperative with meds and care.patient has been npo since midnight. patient had bloody stool this am. patient is up at reyna. patient in bed asleep at this time breathing regular and unlaboured.
[2021-08-18] MEDS ORDERED: LIPITOR80 MG PO (12:14)
[2021-08-18 12:18] LABS: HEMATOCRIT 30.7 % (42.0-52.0); HEMOGLOBIN 10.1 gm/dL (14.0-18.0)
[2021-08-19 00:28] VITALS: BP 140/53
--- NOTE | 2021-08-19 03:41 | NUR ---
Assumed pt care at 1900. A/OX4,VSS, denies pain, N/V on assessment. Reports one Bm with less blood not observed by keno writer/runner. Up ad reyna w/o problems. NSR on telemetry. Continues on a clear liquid diet. Will continue to monitor pt.
[2021-08-19 04:46] VITALS: BP 148/60
[2021-08-19 07:10] VITALS: BP 130/65
[2021-08-19 11:18] VITALS: BP 135/63
--- NOTE | 2021-08-19 14:26 | HC ---
[facility] [place] [address] CONSULTATION Name: RAVNI ALCANTARA Room #: 459-P ADM IN M.R.#: [id number] Admission: 08/17/21 Attend Phys: Tomasa Pettit MD Discharge: Date of : 57 Report #: [id number] THIS REPORT FOR: cc: Magdy Jacobson MD, Steven E. MD McElhinney, Christian C. MD ~ cc: Tomasa Pettit MD, Lane Knight DATE OF SERVICE: 08/18/2021 HISTORY OF PRESENT ILLNESS: The patient is a 65-year-old male with recent episodes of bright red blood per rectum. He does report some mild left lower quadrant abdominal pain. He has had a previous history of diverticulitis approximately 15 years ago, the first episode. He reports this would be the third episode at this time. He has been undergoing colonoscopies on a regular basis for reportedly having a polyp with cancer in it by Dr. Knight, colorectal surgery and was due for another repeat colonoscopy this year reportedly. I do not have a copy of those results. He has passed several stools with bright red blood, although he states now it appears to be slowing. He denies any nausea or vomiting. No fevers or chills. He has a history of end-stage renal disease and is on hemodialysis. He has multiple other medical problems as well. PAST MEDICAL HISTORY: End-stage renal disease, on hemodialysis; hypertension; diabetes; hyperlipidemia; COPD; history of diverticulitis; previous history of colon cancer in a polyp; apparently COPD and obstructive sleep apnea. He is on 2 liters nasal cannula at night. History of coronary artery disease. PAST SURGICAL HISTORY: History of coronary artery bypass graft. ALLERGIES: No known drug allergies. REVIEW OF SYSTEMS: As per HPI. FAMILY HISTORY: Negative for colon cancer. SOCIAL HISTORY: Denies any tobacco use or alcohol use at this time. Previous long history of smoking, quit approximately 8 years ago. PHYSICAL EXAMINATION: VITAL SIGNS: Temperature is 36.3, pulse 91, blood pressure is 186/75, respiratory rate is 18. GENERAL: He is alert and oriented x3, in no acute distress. HEENT: Sclerae nonicteric. Oropharynx clear. NECK: Supple, without lymphadenopathy. CARDIAC: Regular rate and rhythm. CHEST: Clear to auscultation bilaterally. [facility] [address] [place] [address] CONSULTATION Name: RAVIN ALCANTARA Priya Room #: 459-P [facility] IN ..#: [id number] Admission: 08/17/21 Attend Phys: Tomasa Pettit MD Discharge: Date of : 57 Report #: [id number] ABDOMEN: Soft, is nontender, nondistended. Normoactive bowel sounds. EXTREMITIES: No cyanosis, clubbing or edema. LABORATORY DATA: WBC on admission yesterday was 16.4, today is 11.2; hemoglobin 10.1 and platelet count is 198. INR 1.1. Sodium 141, potassium 4.0, chloride 103, bicarbonate 27, BUN 43, creatinine 7.7, glucose 116. Lactic acid level 1.5, calcium 8.0, phosphorus 5.6, magnesium 1.7. Iron 26. AST is 18, ALT is 15, alkaline phosphatase 99, total bilirubin 0.4, albumin 3.1, lipase 116. TSH 0.296. Vitamin B12 is 361. COVID is negative. Hepatitis B surface antigen and antibody are negative. IMAGING: CT scan of the abdomen and pelvis on admission shows CT findings consistent with mild acute diverticulitis of the proximal sigmoid colon without evidence of inflammatory mass, abscess or perforation. Otherwise, negative. ASSESSMENT AND PLAN: CT showing diverticulitis. Agree with antibiotic treatment. The patient has had 2 episodes in the past. He has had recent bright red blood per rectum, suspect this is from diverticulitis or diverticular bleed. He is not having much in the way of abdominal pain at this time. If he has a significant bleed, could consider endoscopy. Otherwise, we would prefer treating with antibiotics, observing and then repeating colonoscopy in approximately 4 to 6 weeks. We will continue to follow closely. Thank you for allowing me to participate in his care. <ELECTRONICALLY SIGNED> By: Mynor Smith MD 08/19/21 1426 1154 2107 Mynor Smith MD /nt
--- NOTE | 2021-08-19 14:41 | NUR ---
PT ADMITTED RELATED TO DIVERTICULITIS AND ESRD. CM REVIEWED CHART AND SPOKE WITH CARE TEAM. CM MET WITH PT AT BEDSIDE THIS DAY. PT APPEARED TO BE A&O X4. CM ROLE INTRODUCED. PT INDICATED HE RESIDES IN AN APARTMENT WITH HIS FIANCE WITH NO STEPS TO ENTER AND NONE INSIDE. 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 PT INDICATED HE GOES TO [facility] 5:30AM CHAIR TIME. PT INDICATED HE PLANS TO RETURN HOME ONCE MEDICALLY STABLE. PT INDICATED HE DOESN'T ANTICIPATE ANY NEEDS UPON DC. PROBABLE DC TOMORROW. CM FOLLOWING REGARDING DC PLANNING.
[2021-08-19 15:15] VITALS: BP 163/87
--- NOTE | 2021-08-19 15:19 | NUR ---
PATIENT FEELING WELL THIS MORNING, STATES HE WOULD LIKE TO ADVANCE HIS DIET FROM CLEAR LIQUIDS. WAS ABLE TO TOLERATE LUNCH WITH NO NEAUSEA/VOMITING. CURRENTLY GETTING SET UP ON DIALYSIS. PLAN TO DISCHARGE TOMORROW.
--- NOTE | 2021-08-19 19:21 | NUR ---
PATIENT FINISHED DIALYSIS AT 191. TOLERATED WELL. VOICES NO NEEDS OR CONCERNS. PLAN TO DISCHARGE HOME TOMORROW.
[2021-08-19 20:21] VITALS: BP 120/61
--- NOTE | 2021-08-20 04:05 | NUR ---
ASSUMED PT CARE THIS PM. PT IS ALERT AND ORIENTED X4. PT HAS JENI SIDDIQUI. PT HAD DIALYSIS AND 1.5L WAS COLLECTED. PT IS ON 2L OF OXYGEN VIA NC INTERMITTENTLY. PT IS UP AD LUIS ALBERTO TO THE BR. PT DID NOT C/O N/V OR PAIN. PT HAD DINNER WHICH WAS WELL TOLERATED. NO VISIBLE SIGN OF DISTRESS WAS NOTED. FALL PRECAUTIONS IN PLACE. WILL CONTINUE TO MONITOR.
[2021-08-20 04:36] VITALS: BP 131/64
[2021-08-20 09:54] VITALS: BP 133/51
[2021-08-20] MEDS ORDERED: CIPROFLOXACIN500 M1 PO (12:03)
[2021-08-20] MEDS ORDERED: FLAGYL500 M1 PO (12:03)
[2021-08-20 13:01] VITALS: BP 133/51
--- NOTE | 2021-08-20 13:28 | NUR ---
CARE TEAM INDICATED THAT PT IS MEDICALLY STABLE TO DC HOME THIS DAY. PT TO DC HOME TO SELF CARE. NO OTHER CM INTERVENTION INDICATED CASE CLOSED.
--- NOTE | 2021-08-20 20:03 | NUR ---
PT ALERT AND ORIENTED TIMES FOUR. VSS. PT DENIES PAIN/SOA. PT TOLERATES MEDS AND MEALS. UP AB LUIS ALBERTO WITH STEADY GAIT. PT DISCHARGE TODAY. PT VERBALIZED DISCHARGE INSTUCTIONS AND LEFT WITH ALL PERSONAL BELONGINGS. PT WAS POCKED UP BY HIS .
== END 2021-08-20 13:49 | disposition home or self-care (01) | DRG 377 ==
LOC: ER 15:19 → EROBS 20:09 → 4W 20:09
PROVIDERS: Nurse Practitioner Family; ADMIT Internal Medicine; ATTEND Internal Medicine
PROC: 5A1D70Z Performance of Urinary Filtration, Intermittent, Less than 6 Hours Per Day (ICD-10-PCS; principal; 2021-08-19)
PROC: 5A1D70Z Performance of Urinary Filtration, Intermittent, Less than 6 Hours Per Day (ICD-10-PCS; 2021-08-20)
DX: K57.33 Diverticulitis of large intestine without perforation or abscess with bleeding (principal); N18.6 End stage renal disease; J96.11 Chronic respiratory failure with hypoxia; D62 Acute posthemorrhagic anemia; I12.0 Hypertensive chronic kidney disease with stage 5 chronic kidney disease or end stage renal disease; K57.31 Diverticulosis of large intestine without perforation or abscess with bleeding; E11.65 Type 2 diabetes mellitus with hyperglycemia; E78.5 Hyperlipidemia, unspecified; J44.9 Chronic obstructive pulmonary disease, unspecified; E11.22 Type 2 diabetes mellitus with diabetic chronic kidney disease; E78.00 Pure hypercholesterolemia, unspecified; G47.33 Obstructive sleep apnea (adult) (pediatric); I25.10 Atherosclerotic heart disease of native coronary artery without angina pectoris; K62.5 Hemorrhage of anus and rectum; E66.01 Morbid (severe) obesity due to excess calories; Z20.822 Contact with and (suspected) exposure to COVID-19; Z68.36 Body mass index [BMI] 36.0-36.9, adult; Z99.2 Dependence on renal dialysis; Z86.010 Personal history of colon polyps; Z95.1 Presence of aortocoronary bypass graft; Z87.891 Personal history of nicotine dependence; Z83.3 Family history of diabetes mellitus; Z82.49 Family history of ischemic heart disease and other diseases of the circulatory system
CPT/HCPCS: 10045; 32100

== ENCOUNTER 2021-09-14 08:47 | Inpatient (IN) | payer OTHER ==
[~2021-09-14] VITALS: Ht 172.7 cm; Wt 108.9 kg
[~2021-09-14 08:47] MED LIST changes: +LIPITOR80 MG PO
[2021-09-14 08:55] VITALS: BP 201/92
[2021-09-14 09:33] LABS: URINE BILIRUBIN NEGATIVE (Negative); URINE BLOOD 1+ (Negative); URINE CLARITY CLEAR; URINE COLOR YELLOW; URINE GLUCOSE-RANDOM* TRACE (Negative); URINE KETONES NEGATIVE (Negative); URINE LEUKOCYTES-REFLEX NEGATIVE (Negative); URINE NITRITE-REFLEX NEGATIVE (Negative); URINE PROTEIN (DIPSTICK) 3+ (Negative); URINE UROBILINOGEN 0.2 E.U./dl (0.2-1.0)
[2021-09-14 09:34] LABS: ABSOLUTE NEUTROPHILS 12.7 thou/uL (1.4-8.2); BASOPHILS 0.6 % (0.0-2.0); EOSINOPHILS 1.2 % (0.0-3.0); HEMOGLOBIN 10.7 gm/dL (14.0-18.0); LYMPHOCYTES 8.4 % (24.0-44.0); MCH 30.7 pg (26.0-34.0); MCHC 32.3 g/dL (28.0-37.0); MCV 94.9 fL (80.0-100.0); MONOCYTES 6.8 % (1.0-8.0); PLATELET COUNT 279 thou/uL (150-400); RBC 3.48 mil/uL (4.50-6.00); RDW 17.1 % (10.5-14.5); WBC 15.3 thou/uL (4.0-11.0)
[2021-09-14 09:47] LABS: CREATININE 4.3 mg/dL (0.7-1.3); POTASSIUM 4.3 mmol/L (3.5-5.1)
[2021-09-14 09:49] LABS: APTT 29.9 Seconds (24.5-32.8); INR 1.06; PROTIME 11.5 Seconds (10.5-12.1)
[2021-09-14] MEDS ORDERED: CALCITRIOL0.25 MCG PO (09:50)
[2021-09-14] MEDS ORDERED: SENSIPAR 30 MG30 M1 PO (09:51)
[2021-09-14 09:57] LABS: ALBUMIN 3.3 g/dL (3.4-5.0); TOTAL PROTEIN 8.9 g/dL (6.4-8.2)
[2021-09-14 10:05] LABS: BACTERIA-REFLEX 1-9 Few /HPF (None Seen); CASTS None Seen /LPF (None Seen); CRYSTALS None Seen /LPF (None Seen); SQUAMOUS 0-3 Few /LPF (0-3); URINE RBC None Seen /HPF (NONE SEEN); URINE WBC-REFLEX 0-5 Rare /HPF (0-5)
[2021-09-14 12:09] VITALS: BP 141/94
[2021-09-14 12:21] VITALS: BP 164/85
--- NOTE | 2021-09-14 12:45 | NUR ---
RECEIVED PT FROM THE ER. PT IS AXOX4, PLEASANT; RENAL DIET ORDERED FOR PT UPON ARRIVAL. ADMISSION COMPLETED.
[2021-09-14 15:11] VITALS: BP 139/76
[2021-09-14 19:45] VITALS: BP 152/76
[2021-09-15 00:30] VITALS: BP 149/62
[2021-09-15 04:45] VITALS: BP 137/54
[2021-09-15 04:58] LABS: ALBUMIN 2.7 g/dL (3.4-5.0); CALCIUM 7.6 mg/dL (8.5-10.1); PHOSPHORUS 3.7 mg/dL (2.5-4.9); POTASSIUM 3.6 mmol/L (3.5-5.1)
[2021-09-15 05:04] LABS: CREATININE 5.5 mg/dL (0.7-1.3)
--- NOTE | 2021-09-15 05:26 | NUR ---
ASSESSMENTS CHARTED, PATIENT DOWN GRADED AT START OF SHIFT FROM CCU TO M/S. PATIENT MOVED FROM 208 TO 219. PATIENT FEELING MUCH BETTER NOW. BREATHING EASIER. PLAN IS TO CONTINUE ANTIBIOTIC THERAPY FOR PNEUMONIA AND UTI.
[2021-09-15 08:20] VITALS: BP 135/63
[2021-09-15 12:30] VITALS: BP 143/67
[2021-09-15 15:57] VITALS: BP 127/54
--- NOTE | 2021-09-15 17:41 | NUR ---
PT STATUS CHANGED FROM MS TO CCT. PT MONITORED WITH 1ST DEG AV BLOCK AND INTERMITTENT PVC. DENIES ANY CP OR SOA. AMBULATORY AD LUIS ALBERTO IN ROOM WITHOUT DIFFICULTY. ACCUCHECKS LESS THAN 130 TODAY, NO INSULIN NEEDED. PULSE OX 98% ON 3L O2. ABX TOLERATED WELL. WILL CONTINUE TO MONITOR.
[2021-09-15 19:30] VITALS: BP 161/54
--- NOTE | 2021-09-16 01:25 | NUR ---
ASSESSMENTS CHARTED. PATIENT UPGRADED DURING DAY BACK TO CCU STATUS. PATIENT IS SCHEDULED FOR CARDIAC CATH IN AM FOR POSSIBLE SILENT NC. DENIES PAIN. SCHEDULED FOR DIALYSIS ALSO IN MORNING.
[2021-09-16 04:11] VITALS: BP 138/63
[2021-09-16 08:10] VITALS: BP 165/97
[2021-09-16 09:06] LABS: ABSOLUTE NEUTROPHILS 8.9 thou/uL (1.4-8.2); EOSINOPHILS 2.3 % (0.0-3.0); HEMATOCRIT 28.5 % (42.0-52.0); HEMOGLOBIN 9.4 gm/dL (14.0-18.0); LYMPHOCYTES 9.4 % (24.0-44.0); MCH 30.7 pg (26.0-34.0); MCHC 32.9 g/dL (28.0-37.0); MCV 93.4 fL (80.0-100.0); PLATELET COUNT 238 thou/uL (150-400); POLYS 79.3 % (36.0-66.0); RBC 3.05 mil/uL (4.50-6.00); RDW 16.4 % (10.5-14.5); WBC 11.2 thou/uL (4.0-11.0)
--- NOTE | 2021-09-16 10:08 | HC ---
[facility] [place] [address] CONSULTATION Name: RAVIN ALCANTARA Room #: 219-P [facility] IN M.R.#: [id number] Admission: 09/14/21 Attend Phys: Tomasa Pettit MD Discharge: Date of : 57 Report #: [id number] THIS REPORT FOR: cc: Magdy Jacobson MD, Steven E. MD Park, Jin S. MD ~ DATE OF SERVICE: 09/15/2021 CARDIOLOGY CONSULTATION INDICATION: Dyspnea. HISTORY OF PRESENT ILLNESS: This is a 65-year-old gentleman with a history of end-stage renal disease, COPD, CABG, ischemic cardiomyopathy, CHF, diabetes mellitus, hypertension and hypercholesterolemia, presenting with shortness of breath. He has been having some shortness of breath and cough over the past several days. Normally, his symptoms of dyspnea improved after dialysis. While undergoing dialysis yesterday, he developed shortness of breath chcf into his treatment. They decided not to complete dialysis and sent him into the ER for an evaluation. He denies any chest pains, fever, nausea or diarrhea. PAST MEDICAL HISTORY: CABG, cardiomyopathy, CHF, COPD, end-stage renal disease, diabetes mellitus, hypertension, hypercholesterolemia. ALLERGIES: None. MEDICATIONS: At home include torsemide 40 mg daily, Flagyl, Cipro, Coreg 12.5 b.i.d., atorvastatin 80 at night, aspirin, Zetia, pentoxifylline. SOCIAL HISTORY: Former smoker. FAMILY HISTORY: Negative for premature CAD. REVIEW OF SYSTEMS: A full 10-point review of systems performed. Only the pertinent positives and negatives are described in the HPI. PHYSICAL EXAMINATION: VITAL SIGNS: Blood pressure is 135/60, heart rate is 80 beats per minute. GENERAL APPEARANCE: He is a well-developed, well-nourished male in no acute distress. HEENT: Normocephalic, atraumatic. Oral mucosa moist. NECK: Supple. LUNGS: Clear to auscultation. CARDIAC: Regular rate and rhythm, S1, S2 positive. ABDOMEN: Soft, nontender. EXTREMITIES: No cyanosis, trace edema. [facility] [address] [place] [address] CONSULTATION Name: RAVIN ALCANTARA Room #: 219-P [facility] IN ..#: [id number] Admission: 09/14/21 Attend Phys: Tomasa Pettit MD Discharge: Date of : 57 Report #: [id number] LABORATORY DATA: Sodium is 141, creatinine is 5.5, hemoglobin is 10.7. DIAGNOSTIC DATA: ECG reveals sinus tachycardia, PVCs, nonspecific IVCD . ASSESSMENT AND PLAN: 1. Congestive heart failure, positive troponin, I am concerned that he has silent ischemia. It is similar to his presentation prior to bypass surgery. He has never had angina as a presenting complaint. Two sets of troponin levels are abnormal, suspect underlying ischemic substrate. I have discussed with him the pros and cons of a cardiac catheterization. We will need to discuss with Nephrology regarding further cardiac testing. Continue on aspirin. 2. Cardiomyopathy, continue with Coreg. 3. End-stage renal disease, continue with dialysis as per Nephrology. 4. Hypercholesterolemia, continue with statin therapy. 5. Diabetes mellitus, as per PCP. <ELECTRONICALLY SIGNED> By: Shakeel Olson MD 09/16/21 1008 0922 1021 hSakeel Olson MD /nt
[2021-09-16 12:10] VITALS: BP 173/81
[2021-09-16 14:13] LABS: CALCIUM 8.3 mg/dL (8.5-10.1); CREATININE 3.7 mg/dL (0.7-1.3); MAGNESIUM 1.8 mg/dL (1.8-2.4); POTASSIUM 3.1 mmol/L (3.5-5.1)
--- NOTE | 2021-09-16 14:34 | NUR ---
CONTACTED DR. DC ABOUT PATIENT'S K+ BEING 3.1 BUT FELT THAT NEPHRO SHOULD BE CONTACTED SINCE HE HAD DIALYSIS TODAY. PHONED NEPHRO OFFICE AND SPOKE WITH CRISTO, SHE WILL PASS THIS ON TO THE MD. CESAR
[2021-09-16 16:20] VITALS: BP 147/58
--- NOTE | 2021-09-16 16:52 | NUR ---
NO FALLS OR INJURIES THIS SHIFT. ALL SAFETY MEASURES IN PLACE. VSS. PATIENT ABLE TO COMPLETE ADLs INDEPENDENTLY. UP AD LUIS ALBERTO IN ROOM. DIALYSIS THIS AM. 2.5L REMOVED. JENI FISTULA + FOR BRUIT AND THRILL. PRN RT TREATMENTS STARTED. PATIENT STATES THAT HE FEELS BETTER WITH IT. NOW ON 2LNC. MORNING LABS REVIEWED. K+ 3.1, NEPHRO NOTIFIED, NO NEW ORDERS. TOLERATES DIET, HAS GOOD APPETITE. NO S/S OF NEW INFECTION. ZOYSN CHANGED TO PO CEFTIN. PLANS FOR STRESS TEST TOMORROW. NPO AT MIDNIGHT. PATIENT AGREES WITH POC AND WILL DC ONCE MEDICALLY STABLE.
[2021-09-16 20:45] VITALS: BP 126/60
[2021-09-17 04:45] VITALS: BP 151/70
--- NOTE | 2021-09-17 07:10 | EKG ---
[address] [place] [employer] [address] ELECTROCARDIOGRAM REPORT Name: RAVIN ALCANTARA Room #: 219-P ADM IN M.R.#: [id number] Admission: 09/14/21 Attend Phys: Tomasa Pettit MD Discharge: Date of : 57 Report #: [id number] [facility] ED Test Date: 2021-09-14 Test Time: 09:13:21 Pat Name: RAVIN ALCANTARA Department: Room: 219 Gender: M Completions Engineer: ras : 1955 Requested By: Wilver Corona Order Number: [id number] MD: Ky Gotti Measurements Intervals [place] Rate: 101 P: -14 UT: 218 QRS: 61 QRSD: 106 T: 226 QT: 341 QTc: 442 Interpretive Statements Sinus tachycardia Multiform ventricular premature complexes Prolonged UT interval Nonspecific T abnormalities, inferior leads Compared to ECG 04/08/2021 15:23:26 Ventricular premature complex(es) now present Sinus rhythm no longer present Possible ischemia no longer present T-wave abnormality still present Electronically Signed On 09-17-2021 7:10:28 GOLF RANGE ATTENDANT by Ky Gotti [email or web address] <ELECTRONICALLY SIGNED> By: Ky Gotti MD, FACC 09/17/2110 2 2 Ky Gotti MD, [facility] /EPI
[2021-09-17 07:30] VITALS: BP 186/76
--- NOTE | 2021-09-17 08:08 | NUR ---
ASSESSMENTS CHARTED, MEDS CHARTED GIVEN. PATIENT RESTING EASILY IN ROOM. UP AT LUIS ALBERTO. NPO AT MIDNIGHT FOR STRESS TEST THIS AM.
[2021-09-17 11:00] VITALS: BP 167/63
--- NOTE | 2021-09-17 12:09 | NUR ---
met with patient who admits with cough, congestion, hx of ESRD. Patient A/Ox4. Patient resides in independent apt with s/o.No steps to enter or in apt. 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 He dializes at [facility]. He cont to drive and be independent. Has home oxygen via [employer] and home CPAP machine. patient questions if dc today. He reports he is ready to dc. anticipate no dc needs.
--- NOTE | 2021-09-17 12:29 | NUR ---
PT WENT TO NUCLEAR STRESS TESTING THIS MORNING, PT CAME BACK NO COMPLAINTS, DIET RESTARTED. RN TOLD BY THAT HE'S OKAY TO GO HOME.
[2021-09-17] MEDS ORDERED: CEFUROXIME250 MG PO (13:45)
[2021-09-17] MEDS ORDERED: MUCINEX600 MG PO (13:45)
[2021-09-17 13:55] VITALS: BP 167/63
[2021-09-17 14:50] VITALS: BP 172/66
== END 2021-09-17 15:00 | disposition home or self-care (01) | DRG 871 ==
LOC: ER 08:47 → 2N 10:41 → EROBS 10:41 → 2N 12:18
PROVIDERS: Emergency Medicine; Hospitalist; Internal Medicine; ADMIT Internal Medicine; ATTEND Internal Medicine
PROC: 5A1D70Z Performance of Urinary Filtration, Intermittent, Less than 6 Hours Per Day (ICD-10-PCS; principal; 2021-09-16)
DX: A41.9 Sepsis, unspecified organism (principal); J18.9 Pneumonia, unspecified organism; I21.4 Non-ST elevation (NSTEMI) myocardial infarction; N18.6 End stage renal disease; I50.23 Acute on chronic systolic (congestive) heart failure; J96.91 Respiratory failure, unspecified with hypoxia; I13.2 Hypertensive heart and chronic kidney disease with heart failure and with stage 5 chronic kidney disease, or end stage renal disease; J44.0 Chronic obstructive pulmonary disease with (acute) lower respiratory infection; I42.9 Cardiomyopathy, unspecified; E11.22 Type 2 diabetes mellitus with diabetic chronic kidney disease; Z20.822 Contact with and (suspected) exposure to COVID-19; E78.00 Pure hypercholesterolemia, unspecified; E87.70 Fluid overload, unspecified; Z95.1 Presence of aortocoronary bypass graft; Z87.891 Personal history of nicotine dependence; Z79.82 Long term (current) use of aspirin; Z79.899 Other long term (current) drug therapy; Z82.49 Family history of ischemic heart disease and other diseases of the circulatory system
CPT/HCPCS: 10081; 32100

== ENCOUNTER 2021-11-11 11:08 | Inpatient (IN) | payer OTHER ==
[~2021-11-11] VITALS: Ht 172.7 cm; Wt 105.2 kg
[~2021-11-11 11:08] MED LIST changes: +CALCITRIOL0.25 MCG PO; +CEFUROXIME250 MG PO; +MUCINEX600 MG PO; +SENSIPAR 30 MG30 M1 PO
[2021-11-11 11:18] VITALS: BP 190/86
--- NOTE | 2021-11-11 11:30 | NUR ---
PT TO ED FOR SOA "ALL WEEKEND", REPORTS IT WAS WORSENED AFTER DIALYSIS. C/O SOA WITH EXERTION. DENIES CP. HX OF COPD AND WEARS 2L NC BASELINE. CPAP HS. DENIES FEVER/CHILLS. DENIES N/V/D.
[2021-11-11 12:03] LABS: ABSOLUTE NEUTROPHILS 8.6 thou/uL (1.4-8.2); BASOPHILS 0.6 % (0.0-2.0); EOSINOPHILS 1.3 % (0.0-3.0); HEMATOCRIT 38.2 % (42.0-52.0); HEMOGLOBIN 12.7 gm/dL (14.0-18.0); LYMPHOCYTES 9.3 % (24.0-44.0); MCH 29.8 pg (26.0-34.0); MCHC 33.3 g/dL (28.0-37.0); MCV 89.4 fL (80.0-100.0); MONOCYTES 6.4 % (1.0-8.0); PLATELET COUNT 281 thou/uL (150-400); POLYS 82.4 % (36.0-66.0); RBC 4.27 mil/uL (4.50-6.00); RDW 18.4 % (10.5-14.5); WBC 10.4 thou/uL (4.0-11.0)
[2021-11-11 12:13] LABS: CREATININE 3.6 mg/dL (0.7-1.3)
[2021-11-11 12:15] LABS: POTASSIUM 3.6 mmol/L (3.5-5.1)
[2021-11-11 12:23] LABS: ALBUMIN 3.3 g/dL (3.4-5.0)
[2021-11-11 13:20] LABS: ANISOCYTOSIS 1+
[2021-11-11 15:48] VITALS: BP 172/83
[2021-11-11 16:00] VITALS: BP 145/51
--- NOTE | 2021-11-11 20:02 | NUR ---
RECEIVED PT FROM THE ER. PT IS AXOX4, PLEASANT. VSS, AFEBRILE, SR BBB ON THE MONITOR. PT ON 2LNC; RESTING COMFORTABLY IN BED. DENIES PAIN. POC IS TO CONTINUE TO MONITOR HR, BP; PT DID NOT TAKE CARDIAC MEDS PRIOR TO DIALYISIS TODAY. NEPHRO AND CARDIOLOGY CONSULTED. LOW FALL PRECAUTIONS IN PLACE.
[2021-11-11 20:03] VITALS: BP 151/71
[2021-11-11 23:43] VITALS: BP 132/69
[2021-11-12 03:26] VITALS: BP 147/75
--- NOTE | 2021-11-12 04:39 | NUR ---
SLEPT PART OF SHIFT. UP AD LUIS ALBERTO IN ROOM WITH STEADY GAIT. NO BLEEDING FROM FISTULA. DENIES COMPLAINTS OF PAIN OR SHORTNESS OF BREATH AT THIS TIME. CONTINUE TO ASSES CLOSELY
[2021-11-12 05:10] LABS: HEMATOCRIT 35.4 % (42.0-52.0); MCH 30.3 pg (26.0-34.0); MCHC 33.8 g/dL (28.0-37.0); MCV 89.5 fL (80.0-100.0); RBC 3.95 mil/uL (4.50-6.00); RDW 18.2 % (10.5-14.5); WBC 7.5 thou/uL (4.0-11.0)
[2021-11-12 05:38] LABS: CALCIUM 7.2 mg/dL (8.5-10.1); POTASSIUM 3.6 mmol/L (3.5-5.1)
[2021-11-12 06:03] LABS: CREATININE 5.5 mg/dL (0.7-1.3)
[2021-11-12 07:00] VITALS: BP 150/72
--- NOTE | 2021-11-12 10:02 | EKG ---
[address] [employer] [address] ELECTROCARDIOGRAM REPORT Name: RAVNI ALCANTARA Room #: 200-I ADM IN M.R.#: [id number] Admission: 11/11/21 Attend Phys: Evan Kebede MD Discharge: Date of : 57 Report #: [id number] [facility] ED Test Date: 2021-11-11 Test Time: 11:28:29 Pat Name: RAVIN ALCANTARA Department: Room: [facility] Gender: M Sinter Press Operator: [id number] : 1955 Requested By: Faina Gonzalez Order Number: [id number] MD: Rios Marrero Measurements Intervals [place] Rate: 96 P: -29 MS: 186 QRS: 55 QRSD: 113 T: 211 QT: 374 QTc: 473 Interpretive Statements Sinus rhythm Premature ventricular beat Incomplete left bundle branch block Compared to ECG 09/14/2021 09:13:21 No significant change was found Electronically Signed On 11-12-2021 7:47:30 CELLOPHANE TESTER by Rios Marrero [email or web address] <ELECTRONICALLY SIGNED> By: Rios Marrero MD, [facility] 11/12/21 0747 1128 1128 Rios Marrero MD, FAC /EPI
--- NOTE | 2021-11-12 12:01 | 2DMMODE ---
[facility] [place] [address] 2 D/M-MODE ECHOCARDIOGRAM Name: RAVIN ALCANTARA Room #: 200-I ADM IN .R.#: [id number] Admission: 11/11/21 Attend Phys: Evan Kebede MD Discharge: Date of : 57 Report #: [id number] THIS REPORT FOR: cc: Magdy Jacobson MD, Steven E. MD Park, Jin S. MD ~ APPROVED REPORT Study performed: 11/12/2021 10:50:40 EXAM: Comprehensive 2D, Doppler, and color-flow Echocardiogram Patient Location: Bedside Room #: 200 Status: routine BSA: 2.15 HR: 75 bpm BP: 150/72 mmHg Rhythm: NSR Other Information Study Quality: Technically Difficult Technically limited study due to body habitus, lung disease, inability to position patient. Indications COPD Diabetes Dyspnea CAD Cardiomyopathy Hypertension/HDD Echo Enhancing Agent Indication: Endocardial border delineation Agent(s) / Amount(s) Used: Optison 4 cc 2D Dimensions IVSd: 11.20 (7-11mm) LVOT Diam: 23.84 (18-24mm) LVDd: 61.75 mm PWd: 10.26 (7-11mm) Ascending Ao: 33.33 (22-36mm) LVDs: 51.10 (25-40mm) Left Atrium: 44.90 (27-40mm) Aortic Root: 35.98 mm IVC: 22.00 mm [facility] [address] [place] [address] 2 D/M-MODE ECHOCARDIOGRAM Name: RAVIN ALCANTARA JR Room #: 200-I [facility] IN ..#: [id number] Admission: 11/11/21 Attend Phys: Evan Kebede MD Discharge: Date of : 57 Report #: [id number] Volumes Left Atrial Volume (Systole) Single Plane 4CH: 81.31 mL Single Plane 2CH: 101.19 mL LA ESV Index: 44.00 mL/m2 Aortic Valve AoV Peak Pramod.: 1.20 m/s AO Peak Gr.: 5.80 mmHg LVOT Max P.12 mmHg LVOT Max V: 0.88 m/s FAREED Vmax: 3.27 cm2 Mitral Valve E/A Ratio: 1.4 MV Decel. Time: 188.65 ms MV E Max Pramod.: 1.18 m/s MV A Pramod.: 0.83 m/s MV PHT: 54.71 ms IVRT: 147.64 ms Pulmonary Valve PV Peak Pramod.: 0.98 m/s PV Peak Gr.: 3.86 mmHg Pulmonary Vein P Vein S: 0.39 m/s P Vein A: 0.13 m/s P Vein D: 0.67 m/s P Vein A Dur.: 96.9 msec P Vein S/D Ratio: 0.58 Tricuspid Valve TR Peak Pramod.: 2.54 m/s TR Peak Gr.: 25.81 mmHg PA Pressure: 36.00 mmHg Left Ventricle Left ventricle is dilated. There is normal left ventricular wall thickness. Left ventricular systolic function is moderate to severely decreased. LVEF is 30-35%. Grade IV - fixed restrictive diastolic dysfunction. Right Ventricle Right ventricle is at the upper limits of normal. The right ventricular systolic function is normal. Atria Left atrium is dilated. Right atrium is dilated. Aortic Valve [facility] [address] [address] 2 D/M-MODE ECHOCARDIOGRAM Name: RAVIN ALCANTARA Room #: 200-I [facility] IN ..#: [id number] Admission: 11/11/21 Attend Phys: Evan Kebede MD Discharge: Date of : 57 Report #: [id number] The aortic valve is normal in structure. No aortic regurgitation is present. There is no aortic valvular stenosis. Mitral Valve The mitral valve is normal in structure. Trace mitral regurgitation. No evidence of mitral valve stenosis. Tricuspid Valve The tricuspid valve is normal in structure. There is trace tricuspid regurgitation. Estimated PAP 36 mmHg. There is mild pulmonary hypertension. Pulmonic Valve The pulmonary valve is normal in structure. Trace pulmonic regurgitation. Great Vessels The aortic root is normal in size. IVC is dilated and collapses <50% with inspiration. Pericardium There is no pericardial effusion. <Conclusion> Left ventricle is dilated. Left ventricular systolic function is moderate to severely decreased. LVEF is 30-35%. Left atrium is dilated. The aortic valve is normal in structure. Trace mitral regurgitation. There is trace tricuspid regurgitation. Estimated PAP 36 mmHg. <ELECTRONICALLY SIGNED> By: Shakeel Olson MD 11/12/21 120 00 00 Shakeel Olson MD /INF
--- NOTE | 2021-11-12 12:24 | NUR ---
PATIENT ADMITTED FOR DYSPNEA FOLLOWING DIALYSIS. CHART REVIEWED AND DISCUSSED WITH CARE TEAM. CM MET WITH PT THIS DAY. CM ROLE INTRODUCED. PT REPORTS HE LIVES AT HOME WITH HIS FIANCE. 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 HE REPORTS HE STILL DRIVES. HE DRIVES HIMSELF TO [facility] IN [place] EVERY --. HE REPORTS NO CONCERNS WITH DC NEEDS ONCE MEDICALLY STABLE TO DISCHARGE HOME. HE DOES HAVE HOME OXYGEN AND BIPAP SERVICED THROUGH [employer]. HE REPORTS ONCE EVERY 3 MONTHS NURSE THROUGH [employer] COMES TO VISIT AND CHECK ON HIM. PT REPORTS THEY CHECK HIS BLOOD SUGAR, ASK HIM QUESTIONS, AND JUST CHECK ON HIM. PT HOPING TO DC TOMORROW. NO CM NEED INDICATED AT THIS TIME.
--- NOTE | 2021-11-12 15:07 | NUR ---
Pt A&Ox4, VS stable and afebrile. Pt is up ad reyna. Walked with RT in AM to reassess 02 needs. Pt is on 2L O2 at home. RT reported O2 sat is 90%-91% on 3L O2 with exertion back to 100% when at rest. No complaints of SOB. Pt recieving dialysis and reports feeling much better. No complaints of pain. No current concerns. Continue to monitor.
[2021-11-12 16:00] VITALS: BP 141/73
[2021-11-12 20:15] VITALS: BP 138/64
--- NOTE | 2021-11-13 03:09 | NUR ---
SLEPT MOST OF SHIFT. UP TO BATHROOM AD LUIS ALBERTO. STATES SINCE DIALYSIS TODAY HE IS BREATHING SO MUCH BETTER. DENIES COMPLAINTS OF PAIN OR SHORTNESS OF AIR. CONTINUE TO ASSES CLOSELY.
[2021-11-13 04:45] VITALS: BP 131/66
[2021-11-13 08:00] VITALS: BP 150/73
[2021-11-13 10:57] VITALS: BP 150/73
[2021-11-13 11:00] VITALS: BP 154/77
[2021-11-13 11:32] VITALS: BP 150/73
--- NOTE | 2021-11-13 13:18 | NUR ---
assessment as charted - meds as per dec arjun diet and fluids. up ad reyna in room - pt had dialysis completed this am - arjun well. home post dialysis. instruction re home meds/ care and follow up given to patient. stated understanding of instruction given. left unit via wheelchair - home via pvt vehicle accompained by - no co's at time of d/c.
== END 2021-11-13 13:04 | disposition home or self-care (01) | DRG 291 ==
LOC: ER 11:08 → 2N 15:05 → EROBS 15:05 → 2N 15:50
PROVIDERS: Nurse Practitioner; ADMIT Hospitalist; ATTEND Hospitalist
PROC: 5A1D70Z Performance of Urinary Filtration, Intermittent, Less than 6 Hours Per Day (ICD-10-PCS; principal; 2021-11-12)
PROC: 5A1D70Z Performance of Urinary Filtration, Intermittent, Less than 6 Hours Per Day (ICD-10-PCS; 2021-11-13)
DX: I13.2 Hypertensive heart and chronic kidney disease with heart failure and with stage 5 chronic kidney disease, or end stage renal disease (principal); N18.6 End stage renal disease; I50.33 Acute on chronic diastolic (congestive) heart failure; R77.8 Other specified abnormalities of plasma proteins; Z20.822 Contact with and (suspected) exposure to COVID-19; E87.70 Fluid overload, unspecified; I25.10 Atherosclerotic heart disease of native coronary artery without angina pectoris; E66.01 Morbid (severe) obesity due to excess calories; E11.22 Type 2 diabetes mellitus with diabetic chronic kidney disease; I25.5 Ischemic cardiomyopathy; G47.33 Obstructive sleep apnea (adult) (pediatric); J43.9 Emphysema, unspecified; Z99.2 Dependence on renal dialysis; Z95.1 Presence of aortocoronary bypass graft; Z87.891 Personal history of nicotine dependence; Z68.35 Body mass index [BMI] 35.0-35.9, adult
CPT/HCPCS: 10081; 32100